=== PATIENT | female | born 1935 | race Caucasian/White ===

== ENCOUNTER 2018-11-11 17:00 | Emergency (ER) | payer MEDICARE, BC ==
[~2018-11-11] VITALS: Ht 154.9 cm; Wt 109.1 kg
[~2018-11-11 17:00] MED LIST: ALBU6.7H INH; ASPI-611 PO; BUDE10.2 INH; CALC600T18; CELE-193 PO; DOXY-200 PO; ESOM40CA PO; FEBU40TA PO; FISH1CAP15 PO; FURO-150 PO; GLYB2.5T4 PO; HYDR-3686 PO; IPRA3AMP31 IH; NEBI2.5T3 PO; NORCO10T PO; POTA20TA84 PO; ROPI2TAB29 PO; ROSU40TA PO; SITA100T15 PO; VIT1CAPS48 PO; ZET10T PO
--- NOTE | 2018-11-11 19:13 | NUR ---
pt moved from [facility] to bed 18. able to ambulate with cane, spoke with provider about pt's wait time
[2018-11-11] MEDS ORDERED: ipratropium/albuterol 3ml nebule NEB ONE (19:25)
[2018-11-11] MEDS ORDERED: azithromycin 250mg tablet PO ONE (19:25)
[2018-11-11] MEDS ORDERED: predniSONE 20 mg tablet PO ONE (19:25)
[2018-11-11] MEDS ORDERED: ALBU8HFA PO (19:33)
[2018-11-11] MEDS ORDERED: AZIT250T2 PO (19:33)
[2018-11-11] MEDS ORDERED: PRED20TA PO (19:33)
--- NOTE | 2018-11-11 19:37 | NUR ---
RT in room for treatment
[2018-11-11 19:38] VITALS: BP 146/78
== END 2018-11-11 19:56 | disposition home or self-care (01) ==
LOC: ER 17:00
DX: J44.1 Chronic obstructive pulmonary disease with (acute) exacerbation (principal); J20.9 Acute bronchitis, unspecified; I48.91 Unspecified atrial fibrillation; I25.119 Atherosclerotic heart disease of native coronary artery with unspecified angina pectoris; I25.2 Old myocardial infarction; E11.9 Type 2 diabetes mellitus without complications; G89.29 Other chronic pain; Z90.49 Acquired absence of other specified parts of digestive tract; Z88.0 Allergy status to penicillin; Z88.8 Allergy status to other drugs, medicaments and biological substances; Z79.82 Long term (current) use of aspirin; Z79.899 Other long term (current) drug therapy
CPT/HCPCS: 71045; 93005; 94640; 94760; 99283; J7512

== ENCOUNTER 2018-12-11 11:05 | Inpatient (IN) | payer MEDICARE, BC ==
[~2018-12-11] VITALS: Ht 154.9 cm; Wt 106.4 kg
[~2018-12-11 11:05] MED LIST changes: +ALBU8HFA PO; +AZIT250T2 PO; -CALC600T18; +CALC600T18 PO; +PRED20TA PO
[2018-12-11] MEDS ORDERED: pantoprazole 40 MG vial IV ONE (12:05)
[2018-12-11] MEDS ORDERED: famotidine/PF 10 mg/ml inj IV ONE (12:05)
[2018-12-11] MEDS ORDERED: normal saline 1000ML IV soln IV ONE (12:05)
[2018-12-11 12:11] LABS: BASOPHILS # (AUTO) 0.1 X10'3 (0-0.2); BASOPHILS % (AUTO) 0.7 % (0-1); EOSINOPHILS # (AUTO) 0.2 X10'3 (0-0.9); EOSINOPHILS % (AUTO) 1.6 % (0-6); HEMATOCRIT 35.7 % (35.0-45.0); HEMOGLOBIN 11.7 g/dl (12.0-16.0); LYMPHOCYTES % (AUTO) 13.1 % (21-51); MEAN CORPUSCULAR HEMOGLOBIN 32.4 PG (27.0-31.0); MEAN CORPUSCULAR HGB CONC 32.8 g/dL (33.0-36.5); MEAN CORPUSCULAR VOLUME 98.8 FL (78-98); MEAN PLATELET VOLUME 8.7 FL (7.4-10.4); MONOCYTES # (AUTO) 1.5 X10'3 (0-0.9); MONOCYTES % (AUTO) 9.9 % (2-12); NEUTROPHILS # (AUTO) 11.2 X10'3 (1.8-7.7); NEUTROPHILS % (AUTO) 74.7 % (42-75); PLATELET COUNT 296 X10'3 (140-440); RED BLOOD COUNT 3.62 X10'6 (4.20-5.60); RED CELL DISTRIBUTION WIDTH 15.2 % (11.5-14.5); WHITE BLOOD COUNT 15.1 X10'3 (4.5-11.0)
[2018-12-11 12:22] LABS: INR 1.1 INR; PARTIAL THROMBOPLASTIN TIME 23 SECONDS (22-32); PROTHROMBIN TIME 10.7 SECONDS (9.0-12.0)
[2018-12-11 12:24] LABS: ALANINE AMINOTRANSFERASE 21 U/L (12-78); ALBUMIN 2.6 G/DL (3.4-5.0); ALBUMIN/GLOBULIN RATIO 0.7 (1.1-1.5); ALKALINE PHOSPHATASE 65 IU/L (46-116); ANION GAP 12 (8-16); ASPARTATE AMINO TRANSFERASE 17 U/L (10-37); BILIRUBIN,TOTAL 0.2 MG/DL (0.1-1.0); BLOOD UREA NITROGEN 64 MG/DL (7-18); BUN/CREATININE RATIO 48.1 (6.6-38.0); CALCIUM 8.9 MG/DL (8.5-10.1); CHLORIDE 110 MMOL/L (99-107); CREATININE 1.33 MG/DL (0.40-0.90); GLUCOSE 162 MG/DL (70-104); POTASSIUM 4.3 MMOL/L (3.5-5.1); SODIUM 143 MMOL/L (135-145); TOTAL PROTEIN 6.3 G/DL (6.4-8.2); eGFR 38 ML/MIN
[2018-12-11 13:35] LABS: PLATELET ESTIMATE NORMAL; TOTAL CELLS COUNTED 100
[2018-12-11] MEDS ORDERED: magnesium 2GM in 50ml NS 50 ML IV PRN (14:10)
[2018-12-11] MEDS ORDERED: magnesium 4gm in 100ml NS 100 ML IV PRN (14:10)
[2018-12-11] MEDS ORDERED: potassium Cl 40MEQ/NS 500ml 500 ML IV PRN ×2 (14:10)
[2018-12-11] MEDS ORDERED: acetaminophen 325mg tablet PO PRN (14:10)
[2018-12-11] MEDS ORDERED: dextrose 50%-water 50ml dispensing syringe IV PRN ×2 (14:10)
[2018-12-11] MEDS ORDERED: glucagon, human recombinant 1mg kit SUBCUT PRN (14:10)
[2018-12-11] MEDS ORDERED: potassium Cl 20 mEq SR tablet PO PRN (14:10)
[2018-12-11] MEDS ORDERED: dextrose ORAL solution 15 GM/59 ML bottle PO PRN ×2 (14:10)
[2018-12-11] MEDS ORDERED: insulin Lispro (HumaLOG) vial - multi-dose SQ SCH (14:10)
[2018-12-11] MEDS ORDERED: ondansetron/PF 4mg/2ml inj IV PRN (14:10)
[2018-12-11] MEDS ORDERED: mag hydrox/Alum hydrox/simeth 30ml oral suspension PO PRN (14:10)
[2018-12-11] MEDS ORDERED: MESSAGE TO PHARMACY PO ONE (14:10)
[2018-12-11] MEDS ORDERED: morphine 4 MG/ML inj SYRINge IV PRN (14:10)
[2018-12-11] MEDS ORDERED: ipratropium/albuterol 3ml nebule NEB PRN (14:10)
[2018-12-11] MEDS ORDERED: ipratropium/albuterol 3ml nebule ONE (14:27)
[2018-12-11] MEDS: normal saline 1000ml 1,000 ML IV SCH (14:44)
[2018-12-11 15:08] LABS: HEMOGLOBIN A1C 7.2 % (4.5-6.2)
[2018-12-11] MEDS ORDERED: ALBU8HFA PO (15:29)
[2018-12-11] MEDS ORDERED: ROPI1TAB4 PO (16:08)
[2018-12-11] MEDS ORDERED: BIOT800T PO (16:13)
[2018-12-11] MEDS ORDERED: CYAN-19 PO (16:13)
[2018-12-11] MEDS ORDERED: TURM538C PO (16:14)
[2018-12-11] MEDS ORDERED: CHOL10002 PO (16:15)
[2018-12-11] MEDS ORDERED: NITR0.4T48 SL (16:18)
[2018-12-11] MEDS ORDERED: FLUT16SP2 BOTHNARES (16:20)
--- NOTE | 2018-12-11 16:30 | NUR ---
PATIENT TO ROOM 346 A. PATIENT ALERT AND ORIENTED AND IN NO APPARENT DISTRESS ON 2L. WILL CONTINUE TO MONITOR PATIENT.
[2018-12-11 16:31] VITALS: BP 111/59
[2018-12-11] MEDS ORDERED: non-formulary drug (Fluticasone Propionate (Flonase) 2 SPRAYS) BOTHNARES PRN (16:50)
[2018-12-11] MEDS: pantoprazole 40MG/NS 100ML BAG 100 ML IV SCH ×2 (17:36→22:26)
--- NOTE | 2018-12-11 18:30 | NUR ---
Problems reprioritized. Patient report given, questions answered & plan of care reviewed with NAGI Navarro. Patient comfortable at this time. 2RN skin check done at this time. Call light and items of frequent use in reach of patient.
--- NOTE | 2018-12-11 18:32 | NUR ---
Received report from NAGI Snider. Patient is awake and alert on 2L NC. In no apparent distress. Call light and items of frequent use within reach. Will continue to monitor.
[2018-12-11] MEDS ORDERED: PEG 3350/Na sulf,bicarb,Cl/KCl oral sol 4 liter bottle PO ONE (18:40)
[2018-12-11] MEDS: albuterol 2.5 MG/3 ML nebule NEB SCH (19:00)
[2018-12-11] MEDS: diatr meglu/diatrizoate 30ml oral sol.-(3 dose) bottle PO SCH (19:15)
[2018-12-11 20:00] VITALS: BP 141/63
[2018-12-11] MEDS ORDERED: non-formulary drug (Budesonide/Formoterol Fumarate (Symbicort 160-4.5 Mcg Inhaler) 2 PUFFS INH SCH (20:00)
[2018-12-11] MEDS: ROPINIRole 1mg tablet PO SCH (20:53)
[2018-12-11] MEDS: ROSUVASTATIN 40MG TABLET PO SCH (20:57)
[2018-12-11] MEDS ORDERED: NEBIVOLOL HCL PO SCH (21:00)
[2018-12-11] MEDS ORDERED: non-formulary drug (Rosuvastatin Calcium* (Crestor*) 1 TAB) PO SCH (21:00)
[2018-12-11] MEDS: budesonide 0.5mg/2ml UD nebule IH SCH (21:00)
[2018-12-11] MEDS ORDERED: diatr meglu/diatrizoate 30ml oral sol.-(3 dose) bottle PO ONE (21:00)
[2018-12-11] MEDS: insulin glargine (Lantus) pen - multi-dose SQ SCH (21:00)
[2018-12-11] MEDS: levoFLOXACIN-Levaquin 500mg/D5 100 ML IV SCH (22:26)
[2018-12-12] VITALS (14 sets, daily range): BP systolic 81–132; BP diastolic 36–64
[2018-12-12] MEDS: metroNIDAZOLE-Flagyl 500mg/NS 100 ML IV SCH ×3 (01:16→16:09)
[2018-12-12] MEDS: normal saline 1000ml 1,000 ML IV SCH (01:16)
[2018-12-12] MEDS: pantoprazole 40MG/NS 100ML BAG 100 ML IV SCH ×2 (04:51→09:14)
[2018-12-12 05:37] LABS: BASOPHILS # (AUTO) 0.1 X10'3 (0-0.2); BASOPHILS % (AUTO) 0.4 % (0-1); EOSINOPHILS # (AUTO) 0.1 X10'3 (0-0.9); EOSINOPHILS % (AUTO) 0.4 % (0-6); HEMATOCRIT 26.2 % (35.0-45.0); HEMOGLOBIN 8.8 g/dl (12.0-16.0); LYMPHOCYTES # (AUTO) 2.1 X10'3 (1.1-4.8); LYMPHOCYTES % (AUTO) 14.4 % (21-51); MEAN CORPUSCULAR HEMOGLOBIN 33.4 PG (27.0-31.0); MEAN CORPUSCULAR HGB CONC 33.5 g/dL (33.0-36.5); MEAN CORPUSCULAR VOLUME 99.6 FL (78-98); MONOCYTES # (AUTO) 1.5 X10'3 (0-0.9); NEUTROPHILS # (AUTO) 11.1 X10'3 (1.8-7.7); NEUTROPHILS % (AUTO) 74.8 % (42-75); PLATELET COUNT 221 X10'3 (140-440); RED BLOOD COUNT 2.63 X10'6 (4.20-5.60); WHITE BLOOD COUNT 14.8 X10'3 (4.5-11.0)
[2018-12-12 05:40] LABS: ALANINE AMINOTRANSFERASE 18 U/L (12-78); ALBUMIN 2.3 G/DL (3.4-5.0); ALBUMIN/GLOBULIN RATIO 0.7 (1.1-1.5); ALKALINE PHOSPHATASE 52 IU/L (46-116); ANION GAP 12 (8-16); ASPARTATE AMINO TRANSFERASE 12 U/L (10-37); BILIRUBIN,TOTAL 0.2 MG/DL (0.1-1.0); BLOOD UREA NITROGEN 67 MG/DL (7-18); BUN/CREATININE RATIO 54.5 (6.6-38.0); CALCIUM 7.8 MG/DL (8.5-10.1); CHLORIDE 114 MMOL/L (99-107); CHOL/HDL RATIO 4.5 (0.00-4.99); CHOLESTEROL 116 MG/DL (0-200); CREATININE 1.23 MG/DL (0.40-0.90); GLUCOSE 181 MG/DL (70-104); HDL CHOLESTEROL 26 MG/DL (35-60); LDL CHOLESTEROL 53 MG/DL (50-100); MAGNESIUM 1.7 MG/DL (1.5-2.4); SODIUM 147 MMOL/L (135-145); TOTAL CARBON DIOXIDE 20.8 MMOL/L (24-32); TOTAL PROTEIN 5.4 G/DL (6.4-8.2); TRIGLYCERIDES 277 MG/DL (20-135); eGFR 42 ML/MIN
--- NOTE | 2018-12-12 06:09 | NUR ---
Problems reprioritized. Patient report given, questions answered & plan of care reviewed with NAGI Callejas.
[2018-12-12] MEDS: albuterol 2.5 MG/3 ML nebule NEB SCH ×4 (07:27→19:57)
[2018-12-12] MEDS: budesonide 0.5mg/2ml UD nebule IH SCH ×2 (07:27→19:57)
[2018-12-12] MEDS: cyanocobalamin 500mcg tablet PO SCH ×2 (08:00→08:52)
[2018-12-12] MEDS ORDERED: fluticasone nasal spray 16GM bottle NS PRN (08:00)
[2018-12-12] MEDS ORDERED: CYANOCOBALAMIN PO SCH (08:00)
[2018-12-12] MEDS ORDERED: non-formulary drug (Calcium Carbonate (Calcium) 1 TAB) PO SCH (08:00)
[2018-12-12] MEDS: K and/or MAG REPLACEMENT MC SCH (08:00)
[2018-12-12] MEDS: levoFLOXACIN-Levaquin 500mg/D5 100 ML IV SCH (08:00)
[2018-12-12] MEDS ORDERED: non-formulary drug (Fish Oil/Dha/Epa (Fish Oil 1,200 Mg Fish Oil) 1 EACH) PO SCH (08:00)
[2018-12-12] MEDS ORDERED: non-formulary drug (Cholecalciferol (Vitamin D3) (Vitamin D3) 1 TAB) PO SCH (08:00)
[2018-12-12] MEDS ORDERED: non-formulary drug (Vit A & D3 In Cod Liver Oil (Cod Liver Oil Softgel) 1 EACH) PO SCH (08:00)
[2018-12-12] MEDS: vitamin D (cholecalciferol) 1,000 unit tablet PO SCH ×2 (08:00→08:52)
[2018-12-12] MEDS: ULORIC 40 MG PO SCH (08:00)
[2018-12-12] MEDS: calcium carbonate 500mg tablet PO SCH ×2 (08:00→08:51)
[2018-12-12] MEDS: dextrose 5%-water 1,000 ML IV SCH ×2 (08:46→17:45)
[2018-12-12] MEDS: nystatin 15 GM powder TP SCH ×3 (08:52→21:21)
--- NOTE | 2018-12-12 09:06 | NUR ---
Spoke with ton clarify orders on Golytlly and gastrograffin. Although pt. has not had full dose r/t not tolerating well there are no new dosing orders for these medications. Pt. has 2 ATB IV anmd protonix, incompatible medications, attempted IV p[lacement x 2 with no sucess, Jazmine ross for placement of IV, states PICC or midline would be good for pt. to have. states protonix has priority over ATB. Will hold ATB and give protonix IV per order at this time.
--- NOTE | 2018-12-12 10:45 | NUR ---
Pt. leaving floor to go to CT, has 02 on her chair, pt. to go to GI lab for upper and lower endoscopy immediately after CT scan.
--- NOTE | 2018-12-12 12:38 | NUR ---
Called GI to relay that pt. BG has not been taken for lunch.
[2018-12-12] MEDS ORDERED: MIDAZolam 5mg/5ml vial ONE (12:53)
[2018-12-12] MEDS ORDERED: fentaNYL/PF 50MCG/1 ML 2ML syringe ONE (12:53)
[2018-12-12] MEDS ORDERED: LIDOcaine Viscous 15ml cup ONE (12:53)
--- NOTE | 2018-12-12 15:47 | NUR ---
Extended PIV inserted to left upper arm brachial vein x 2 attempts using ultrasound. Rebecca well. Left AC PIV left leaking. IV redressed, y-site replaced tightened, but continued to leak. PIV dc'd with cath intact. Several (total 6 with ok from patient) attempts x 3 nurses to each arm to insert PIV but unable to do so. Dr Ortiz notified and stated to hold antibiotics for now until after Dr Pineda' GI consult. Addendum: 12/12/18 at 1552 by Jazmine Low RN Amended: Links added.
[2018-12-12 15:56] LABS: HEMATOCRIT 22.6 % (35.0-45.0); HEMOGLOBIN 7.5 g/dl (12.0-16.0); MEAN CORPUSCULAR HEMOGLOBIN 32.7 PG (27.0-31.0); MEAN CORPUSCULAR VOLUME 99.1 FL (78-98); MEAN PLATELET VOLUME 8.8 FL (7.4-10.4); PLATELET COUNT 211 X10'3 (140-440); RED BLOOD COUNT 2.28 X10'6 (4.20-5.60); RED CELL DISTRIBUTION WIDTH 15.3 % (11.5-14.5); WHITE BLOOD COUNT 15.5 X10'3 (4.5-11.0)
--- NOTE | 2018-12-12 18:19 | NUR ---
Received report from NAGI Callejas. Patient is awake and alert on 2L NC, in no apparent distress. Call light and items of frequent use within reach. Will continue to monitor.
--- NOTE | 2018-12-12 18:39 | NUR ---
Pt. has signed blood transfusion consent as well as MD, pt. is aware of transfusion and has educational materials, reviewed s/sx of ASE of transfusion. Reported that blood is ready in lab, tubing ready for transfusion, vitaols machine in room and hooked up to pt., pt. is alert and appropriate sitting comfortably in bed. VSS at this time. Report given to Melanie LAZAR.
[2018-12-12] MEDS: pantoprazole 40 MG vial IV SCH (19:32)
[2018-12-12] MEDS: lactobacillus rhamnosus 10,000 MMU CELLS/CAPSULE PO SCH (19:33)
[2018-12-12] MEDS: insulin glargine (Lantus) pen - multi-dose SQ SCH (21:00)
[2018-12-12] MEDS: ROSUVASTATIN 40MG TABLET PO SCH (21:00)
[2018-12-12] MEDS: ROPINIRole 1mg tablet PO SCH (21:19)
[2018-12-13] VITALS (12 sets, daily range): BP systolic 101–124; BP diastolic 43–81
[2018-12-13 00:15] LABS: HEMATOCRIT 23.6 % (35.0-45.0); HEMOGLOBIN 7.7 g/dl (12.0-16.0); MEAN CORPUSCULAR HGB CONC 32.6 g/dL (33.0-36.5); MEAN CORPUSCULAR VOLUME 98.2 FL (78-98); MEAN PLATELET VOLUME 8.8 FL (7.4-10.4); PLATELET COUNT 182 X10'3 (140-440); RED CELL DISTRIBUTION WIDTH 15.6 % (11.5-14.5); WHITE BLOOD COUNT 13.8 X10'3 (4.5-11.0)
[2018-12-13] MEDS: metroNIDAZOLE-Flagyl 500mg/NS 100 ML IV SCH ×4 (00:41→23:37)
[2018-12-13] MEDS: morphine 4 MG/ML inj SYRINge IV PRN ×2 (02:32→13:37)
[2018-12-13] MEDS: dextrose 5%-water 1,000 ML IV SCH ×3 (04:47→23:37)
[2018-12-13 05:05] LABS: BASOPHILS # (AUTO) 0.1 X10'3 (0-0.2); BASOPHILS % (AUTO) 0.5 % (0-1); EOSINOPHILS # (AUTO) 0.2 X10'3 (0-0.9); EOSINOPHILS % (AUTO) 1.3 % (0-6); HEMOGLOBIN 7.1 g/dl (12.0-16.0); LYMPHOCYTES # (AUTO) 2.3 X10'3 (1.1-4.8); LYMPHOCYTES % (AUTO) 17.9 % (21-51); MEAN CORPUSCULAR HEMOGLOBIN 32.6 PG (27.0-31.0); MEAN CORPUSCULAR HGB CONC 33.7 g/dL (33.0-36.5); MEAN CORPUSCULAR VOLUME 96.9 FL (78-98); MEAN PLATELET VOLUME 9.2 FL (7.4-10.4); NEUTROPHILS # (AUTO) 9.1 X10'3 (1.8-7.7); NEUTROPHILS % (AUTO) 72.3 % (42-75); PLATELET COUNT 170 X10'3 (140-440); RED BLOOD COUNT 2.16 X10'6 (4.20-5.60); RED CELL DISTRIBUTION WIDTH 16.1 % (11.5-14.5); WHITE BLOOD COUNT 12.6 X10'3 (4.5-11.0)
[2018-12-13 05:23] LABS: ALANINE AMINOTRANSFERASE 11 U/L (12-78); ALBUMIN 2.1 G/DL (3.4-5.0); ALBUMIN/GLOBULIN RATIO 0.8 (1.1-1.5); ALKALINE PHOSPHATASE 48 IU/L (46-116); ANION GAP 10 (8-16); ASPARTATE AMINO TRANSFERASE 11 U/L (10-37); BILIRUBIN,TOTAL 0.2 MG/DL (0.1-1.0); BLOOD UREA NITROGEN 33 MG/DL (7-18); BUN/CREATININE RATIO 30.3 (6.6-38.0); CALCIUM 7.3 MG/DL (8.5-10.1); CHLORIDE 114 MMOL/L (99-107); CREATININE 1.09 MG/DL (0.40-0.90); GLUCOSE 175 MG/DL (70-104); MAGNESIUM 1.8 MG/DL (1.5-2.4); POTASSIUM 3.3 MMOL/L (3.5-5.1); SODIUM 146 MMOL/L (135-145); TOTAL CARBON DIOXIDE 22.2 MMOL/L (24-32); TOTAL PROTEIN 4.9 G/DL (6.4-8.2); eGFR 48 ML/MIN
--- NOTE | 2018-12-13 05:55 | NUR ---
Critical low Hematocrit 21 called at 0523. MD Al aware. Ordered 1 unit of PRBCs to be administered.
--- NOTE | 2018-12-13 06:15 | NUR ---
Patient in room [facility] 346. I have received report from Melanie LAZAR and had the opportunity to ask questions and assume patient care. Patient in bed resting bed low, locked, call light in reach
--- NOTE | 2018-12-13 06:15 | NUR ---
Problems reprioritized. Patient report given, questions answered & plan of care reviewed with NAGI Gudino.
[2018-12-13] MEDS: albuterol 2.5 MG/3 ML nebule NEB SCH ×4 (07:31→21:59)
[2018-12-13] MEDS: budesonide 0.5mg/2ml UD nebule IH SCH ×2 (07:31→21:59)
[2018-12-13] MEDS: K and/or MAG REPLACEMENT MC SCH (08:00)
[2018-12-13] MEDS: cyanocobalamin 500mcg tablet PO SCH (08:00)
[2018-12-13] MEDS ORDERED: levoFLOXACIN-Levaquin 250mg/D5 50 ML IV SCH (08:00)
[2018-12-13] MEDS: ULORIC 40 MG PO SCH (08:00)
[2018-12-13] MEDS: calcium carbonate 500mg tablet PO SCH (08:34)
[2018-12-13] MEDS: vitamin D (cholecalciferol) 1,000 unit tablet PO SCH ×2 (08:34→08:42)
[2018-12-13] MEDS: lactobacillus rhamnosus 10,000 MMU CELLS/CAPSULE PO SCH ×2 (08:34→20:14)
[2018-12-13] MEDS: potassium Cl 20 mEq SR tablet PO PRN ×3 (08:35→20:14)
[2018-12-13] MEDS: pantoprazole 40 MG vial IV SCH ×2 (08:36→20:14)
[2018-12-13] MEDS: nystatin 15 GM powder TP SCH ×3 (08:49→20:15)
[2018-12-13] MEDS ORDERED: diazepam 5mg tablet PO PRN (15:05)
--- NOTE | 2018-12-13 15:31 | NUR ---
DM consult, A1c 7.2, patient given written DM education handout with verbal review. Addendum: 12/13/18 at [address] Amended: Links added.
[2018-12-13 15:46] LABS: HEMATOCRIT 24.7 % (35.0-45.0); HEMOGLOBIN 8.1 g/dl (12.0-16.0); MEAN CORPUSCULAR HEMOGLOBIN 31.8 PG (27.0-31.0); MEAN CORPUSCULAR VOLUME 96.3 FL (78-98); PLATELET COUNT 164 X10'3 (140-440); RED BLOOD COUNT 2.56 X10'6 (4.20-5.60); RED CELL DISTRIBUTION WIDTH 15.8 % (11.5-14.5); WHITE BLOOD COUNT 13.1 X10'3 (4.5-11.0)
--- NOTE | 2018-12-13 18:25 | NUR ---
Problems reprioritized. Patient report given, Melanie LAZAR questions answered & plan of care reviewed with . Patient in bed. Bed locked, low call light in reach
--- NOTE | 2018-12-13 18:33 | NUR ---
Received report from NAGI Gudino. Patient is awake and alert on room air, in no apparent distress. Call light and items of frequent use within reach. Will continue to monitor.
[2018-12-13] MEDS: ROPINIRole 1mg tablet PO SCH (20:14)
[2018-12-13] MEDS: insulin glargine (Lantus) pen - multi-dose SQ SCH (20:19)
[2018-12-13] MEDS: ROSUVASTATIN 40MG TABLET PO SCH (20:19)
[2018-12-14] VITALS (11 sets, daily range): BP systolic 99–125; BP diastolic 40–100
[2018-12-14 05:11] LABS: BASOPHILS # (AUTO) 0.1 X10'3 (0-0.2); BASOPHILS % (AUTO) 0.6 % (0-1); EOSINOPHILS # (AUTO) 0.4 X10'3 (0-0.9); EOSINOPHILS % (AUTO) 3.9 % (0-6); HEMATOCRIT 22.9 % (35.0-45.0); HEMOGLOBIN 7.7 g/dl (12.0-16.0); LYMPHOCYTES # (AUTO) 2.2 X10'3 (1.1-4.8); MEAN CORPUSCULAR HEMOGLOBIN 32.5 PG (27.0-31.0); MEAN CORPUSCULAR HGB CONC 33.9 g/dL (33.0-36.5); MEAN CORPUSCULAR VOLUME 95.9 FL (78-98); MEAN PLATELET VOLUME 8.8 FL (7.4-10.4); MONOCYTES # (AUTO) 0.8 X10'3 (0-0.9); MONOCYTES % (AUTO) 7.2 % (2-12); NEUTROPHILS # (AUTO) 7.1 X10'3 (1.8-7.7); NEUTROPHILS % (AUTO) 67.3 % (42-75); PLATELET COUNT 160 X10'3 (140-440); RED BLOOD COUNT 2.38 X10'6 (4.20-5.60); WHITE BLOOD COUNT 10.6 X10'3 (4.5-11.0)
[2018-12-14 05:21] LABS: ALANINE AMINOTRANSFERASE 16 U/L (12-78); ALBUMIN 2.1 G/DL (3.4-5.0); ALBUMIN/GLOBULIN RATIO 0.7 (1.1-1.5); ALKALINE PHOSPHATASE 50 IU/L (46-116); ANION GAP 7 (8-16); ASPARTATE AMINO TRANSFERASE 16 U/L (10-37); BILIRUBIN,TOTAL 0.2 MG/DL (0.1-1.0); CALCIUM 7.2 MG/DL (8.5-10.1); CHLORIDE 111 MMOL/L (99-107); CREATININE 0.99 MG/DL (0.40-0.90); GLUCOSE 154 MG/DL (70-104); MAGNESIUM 1.6 MG/DL (1.5-2.4); POTASSIUM 3.5 MMOL/L (3.5-5.1); SODIUM 140 MMOL/L (135-145); TOTAL CARBON DIOXIDE 21.7 MMOL/L (24-32); eGFR 54 ML/MIN
[2018-12-14 05:39] LABS: BLOOD UREA NITROGEN 13 MG/DL (7-18); BUN/CREATININE RATIO 13.1 (6.6-38.0)
--- NOTE | 2018-12-14 06:20 | NUR ---
Patient in room [facility] 346. I have received report from Melanie LAZAR and had the opportunity to ask questions and assume patient care.Patient in bed resting, bed low, locked, call light in reach
--- NOTE | 2018-12-14 06:20 | NUR ---
Problems reprioritized. Patient report given, questions answered & plan of care reviewed with NAGI Gudino.
[2018-12-14] MEDS: albuterol 2.5 MG/3 ML nebule NEB SCH ×4 (07:32→20:00)
[2018-12-14] MEDS: budesonide 0.5mg/2ml UD nebule IH SCH ×2 (07:34→20:00)
[2018-12-14] MEDS: calcium carbonate 500mg tablet PO SCH (07:47)
[2018-12-14] MEDS: lactobacillus rhamnosus 10,000 MMU CELLS/CAPSULE PO SCH ×2 (07:47→21:06)
[2018-12-14] MEDS: vitamin D (cholecalciferol) 1,000 unit tablet PO SCH (07:48)
[2018-12-14] MEDS: cyanocobalamin 500mcg tablet PO SCH (07:48)
[2018-12-14] MEDS: pantoprazole 40 MG vial IV SCH ×2 (07:50→21:06)
[2018-12-14] MEDS: metroNIDAZOLE-Flagyl 500mg/NS 100 ML IV SCH ×3 (07:51→23:48)
[2018-12-14] MEDS: ULORIC 40 MG PO SCH (08:00)
[2018-12-14] MEDS: K and/or MAG REPLACEMENT MC SCH (08:00)
[2018-12-14] MEDS: nystatin 15 GM powder TP SCH ×3 (08:07→21:08)
--- NOTE | 2018-12-14 08:27 | NUR ---
Pola from Tele call patient is having PVC's with 4,5,6 runs. I paged MD. Patient non symptomatic. I will continue to monitor
--- NOTE | 2018-12-14 09:13 | NUR ---
Dr. Ortiz called back and he is monitoring patient. he has stopped her Levaquin
[2018-12-14] MEDS: dextrose 5%-water 1,000 ML IV SCH ×2 (09:45→19:45)
[2018-12-14] MEDS ORDERED: metoprolol tartrate 12.5mg (1/2 tablet) PO SCH (10:10)
--- NOTE | 2018-12-14 12:17 | NUR ---
Pola from [facility] had a [address] Addendum: 12/14/18 at 1221 by Terese Garibay RN Order to keep k replace to 4.0 and Mag 2.0
--- NOTE | 2018-12-14 13:57 | NUR ---
I called tele and gave report to Juanis LAZAR patient is getting transferred to 4759A
--- NOTE | 2018-12-14 14:10 | NUR ---
Patient transferred to [facility]. Patient stable at discharge. All belongings sent.
[2018-12-14] MEDS ORDERED: potassium Cl 20 mEq SR tablet PO PRN ×3 (14:25→15:35)
[2018-12-14] MEDS ORDERED: potassium Cl 40MEQ/NS 500ml 500 ML IV PRN ×2 (14:25)
[2018-12-14] MEDS ORDERED: magnesium 2GM in 50ml NS 50 ML IV PRN (14:25)
[2018-12-14] MEDS ORDERED: magnesium 4gm in 100ml NS 100 ML IV PRN (14:25)
[2018-12-14] MEDS ORDERED: magnesium Cl slow-release 64mg tablet PO PRN (14:25)
[2018-12-14] MEDS ORDERED: metoprolol tartrate 12.5mg (1/2 tablet) PO ONE (15:45)
[2018-12-14] MEDS: morphine 4 MG/ML inj SYRINge IV PRN (16:41)
[2018-12-14] MEDS: potassium Cl 20 mEq SR tablet PO PRN ×2 (17:31→21:06)
[2018-12-14] MEDS: ROSUVASTATIN 40MG TABLET PO SCH (21:00)
[2018-12-14] MEDS: insulin glargine (Lantus) pen - multi-dose SQ SCH (21:00)
[2018-12-14] MEDS: ROPINIRole 1mg tablet PO SCH (21:06)
[2018-12-14] MEDS: metoprolol tartrate 25mg tablet PO SCH (21:06)
[2018-12-14 22:23] LABS: ALBUMIN 2.3 G/DL (3.4-5.0); ANION GAP 9 (8-16); BLOOD UREA NITROGEN 7 MG/DL (7-18); BUN/CREATININE RATIO 7.9 (6.6-38.0); CALCIUM 7.5 MG/DL (8.5-10.1); CHLORIDE 111 MMOL/L (99-107); CREATININE 0.89 MG/DL (0.40-0.90); GLUCOSE 155 MG/DL (70-104); MAGNESIUM 1.7 MG/DL (1.5-2.4); POTASSIUM 3.4 MMOL/L (3.5-5.1); SODIUM 142 MMOL/L (135-145); TOTAL CARBON DIOXIDE 22.5 MMOL/L (24-32); eGFR 61 ML/MIN
[2018-12-15 03:00] VITALS: BP 111/43
[2018-12-15] MEDS: dextrose 5%-water 1,000 ML IV SCH ×2 (05:45→12:26)
[2018-12-15 06:29] LABS: BASOPHILS # (AUTO) 0.1 X10'3 (0-0.2); BASOPHILS % (AUTO) 0.7 % (0-1); EOSINOPHILS # (AUTO) 0.5 X10'3 (0-0.9); EOSINOPHILS % (AUTO) 5.2 % (0-6); HEMATOCRIT 25.2 % (35.0-45.0); HEMOGLOBIN 8.8 g/dl (12.0-16.0); LYMPHOCYTES # (AUTO) 1.8 X10'3 (1.1-4.8); LYMPHOCYTES % (AUTO) 17.7 % (21-51); MEAN CORPUSCULAR HEMOGLOBIN 33.4 PG (27.0-31.0); MEAN CORPUSCULAR VOLUME 95.4 FL (78-98); MEAN PLATELET VOLUME 9.2 FL (7.4-10.4); MONOCYTES # (AUTO) 0.9 X10'3 (0-0.9); MONOCYTES % (AUTO) 8.5 % (2-12); NEUTROPHILS # (AUTO) 7.1 X10'3 (1.8-7.7); NEUTROPHILS % (AUTO) 67.9 % (42-75); PLATELET COUNT 178 X10'3 (140-440); RED BLOOD COUNT 2.65 X10'6 (4.20-5.60); RED CELL DISTRIBUTION WIDTH 15.9 % (11.5-14.5); WHITE BLOOD COUNT 10.4 X10'3 (4.5-11.0)
[2018-12-15 06:54] LABS: ALANINE AMINOTRANSFERASE 18 U/L (12-78); ALBUMIN 2.2 G/DL (3.4-5.0); ALBUMIN/GLOBULIN RATIO 0.7 (1.1-1.5); ALKALINE PHOSPHATASE 52 IU/L (46-116); ANION GAP 9 (8-16); ASPARTATE AMINO TRANSFERASE 22 U/L (10-37); BILIRUBIN,TOTAL 0.2 MG/DL (0.1-1.0); BLOOD UREA NITROGEN 5 MG/DL (7-18); CALCIUM 7.3 MG/DL (8.5-10.1); CHLORIDE 114 MMOL/L (99-107); CREATININE 0.84 MG/DL (0.40-0.90); GLUCOSE 126 MG/DL (70-104); POTASSIUM 4.2 MMOL/L (3.5-5.1); SODIUM 143 MMOL/L (135-145); TOTAL CARBON DIOXIDE 20.5 MMOL/L (24-32); TOTAL PROTEIN 5.2 G/DL (6.4-8.2); eGFR 65 ML/MIN
[2018-12-15 07:00] VITALS: BP 118/38
[2018-12-15] MEDS: budesonide 0.5mg/2ml UD nebule IH SCH ×2 (07:48→19:25)
[2018-12-15] MEDS: albuterol 2.5 MG/3 ML nebule NEB SCH ×4 (07:48→19:25)
[2018-12-15] MEDS ORDERED: CefTRIAXone/D5W-Rocephin 1gm 50 ML IV SCH (08:00)
[2018-12-15] MEDS: ULORIC 40 MG PO SCH (08:00)
[2018-12-15] MEDS: K and/or MAG REPLACEMENT MC SCH (08:00)
[2018-12-15] MEDS: cyanocobalamin 500mcg tablet PO SCH (08:52)
[2018-12-15] MEDS: vitamin D (cholecalciferol) 1,000 unit tablet PO SCH (08:52)
[2018-12-15] MEDS: pantoprazole 40 MG vial IV SCH ×2 (08:52→20:42)
[2018-12-15] MEDS: metoprolol tartrate 25mg tablet PO SCH ×2 (08:52→20:45)
[2018-12-15] MEDS: lactobacillus rhamnosus 10,000 MMU CELLS/CAPSULE PO SCH ×2 (08:52→20:42)
[2018-12-15] MEDS: calcium carbonate 500mg tablet PO SCH (08:52)
[2018-12-15] MEDS: morphine 4 MG/ML inj SYRINge IV PRN ×3 (09:18→20:45)
[2018-12-15] MEDS: nystatin 15 GM powder TP SCH ×3 (09:39→20:42)
[2018-12-15] MEDS: metroNIDAZOLE-Flagyl 500mg/NS 100 ML IV SCH ×2 (09:39→16:33)
[2018-12-15] MEDS: [UNRECOGNIZED DRUG - REMARK] IV NR (10:00)
[2018-12-15 11:00] VITALS: BP 113/38
[2018-12-15 15:00] VITALS: BP 127/50
--- NOTE | 2018-12-15 18:31 | NUR ---
Problems reprioritized. Patient report given, questions answered & plan of care reviewed with Aleta Kay RN, Maggie LAZAR..
[2018-12-15 19:00] VITALS: BP 117/57
[2018-12-15] MEDS: ROPINIRole 1mg tablet PO SCH (20:42)
[2018-12-15] MEDS: ketoconazole 2% cream 15gm TP SCH (20:46)
[2018-12-15] MEDS: ROSUVASTATIN 40MG TABLET PO SCH (20:46)
[2018-12-15] MEDS: insulin glargine (Lantus) pen - multi-dose SQ SCH (21:00)
[2018-12-15 23:00] VITALS: BP 114/58
[2018-12-16] MEDS: dextrose 5%-water 1,000 ML IV SCH (01:23)
[2018-12-16 03:00] VITALS: BP 113/47
[2018-12-16 05:55] LABS: BASOPHILS # (AUTO) 0.1 X10'3 (0-0.2); BASOPHILS % (AUTO) 0.7 % (0-1); EOSINOPHILS # (AUTO) 0.8 X10'3 (0-0.9); EOSINOPHILS % (AUTO) 6.6 % (0-6); HEMATOCRIT 26.4 % (35.0-45.0); HEMOGLOBIN 8.9 g/dl (12.0-16.0); LYMPHOCYTES # (AUTO) 1.9 X10'3 (1.1-4.8); LYMPHOCYTES % (AUTO) 15.9 % (21-51); MEAN CORPUSCULAR HEMOGLOBIN 32.4 PG (27.0-31.0); MEAN CORPUSCULAR HGB CONC 33.6 g/dL (33.0-36.5); MEAN CORPUSCULAR VOLUME 96.5 FL (78-98); MONOCYTES # (AUTO) 1.2 X10'3 (0-0.9); MONOCYTES % (AUTO) 9.8 % (2-12); NEUTROPHILS # (AUTO) 7.9 X10'3 (1.8-7.7); PLATELET COUNT 194 X10'3 (140-440); RED BLOOD COUNT 2.74 X10'6 (4.20-5.60); WHITE BLOOD COUNT 11.8 X10'3 (4.5-11.0)
--- NOTE | 2018-12-16 06:06 | NUR ---
Problems reprioritized. Patient report given, questions answered & plan of care reviewed with NAGI Elias.
[2018-12-16 07:00] VITALS: BP 115/79
[2018-12-16] MEDS: pantoprazole 40 MG vial IV SCH ×2 (07:29→21:21)
[2018-12-16] MEDS: nystatin 15 GM powder TP SCH ×3 (07:29→21:25)
[2018-12-16] MEDS: metoprolol tartrate 25mg tablet PO SCH ×2 (07:30→21:23)
[2018-12-16] MEDS: vitamin D (cholecalciferol) 1,000 unit tablet PO SCH (07:30)
[2018-12-16] MEDS: lactobacillus rhamnosus 10,000 MMU CELLS/CAPSULE PO SCH ×2 (07:30→21:22)
[2018-12-16] MEDS: cyanocobalamin 500mcg tablet PO SCH (07:30)
[2018-12-16] MEDS: calcium carbonate 500mg tablet PO SCH (07:30)
[2018-12-16] MEDS: ketoconazole 2% cream 15gm TP SCH ×2 (07:30→21:23)
[2018-12-16 07:44] LABS: ALANINE AMINOTRANSFERASE 18 U/L (12-78); ALBUMIN 2.2 G/DL (3.4-5.0); ALBUMIN/GLOBULIN RATIO 0.7 (1.1-1.5); ANION GAP 10 (8-16); ASPARTATE AMINO TRANSFERASE 19 U/L (10-37); BILIRUBIN,TOTAL 0.2 MG/DL (0.1-1.0); BLOOD UREA NITROGEN 7 MG/DL (7-18); BUN/CREATININE RATIO 7.4 (6.6-38.0); CALCIUM 7.4 MG/DL (8.5-10.1); CHLORIDE 111 MMOL/L (99-107); CREATININE 0.95 MG/DL (0.40-0.90); GLUCOSE 163 MG/DL (70-104); POTASSIUM 3.9 MMOL/L (3.5-5.1); SODIUM 141 MMOL/L (135-145); TOTAL CARBON DIOXIDE 20.4 MMOL/L (24-32); TOTAL PROTEIN 5.3 G/DL (6.4-8.2); eGFR 56 ML/MIN
[2018-12-16 07:47] LABS: ALKALINE PHOSPHATASE 55 IU/L (46-116)
[2018-12-16] MEDS: albuterol 2.5 MG/3 ML nebule NEB SCH ×4 (07:53→19:56)
[2018-12-16] MEDS: budesonide 0.5mg/2ml UD nebule IH SCH ×2 (07:53→19:56)
[2018-12-16] MEDS: K and/or MAG REPLACEMENT MC SCH (08:00)
[2018-12-16] MEDS: [UNRECOGNIZED DRUG - REMARK] IV NR (10:00)
[2018-12-16] MEDS: morphine 4 MG/ML inj SYRINge IV PRN (10:58)
[2018-12-16 11:00] VITALS: BP 102/42
[2018-12-16] MEDS: potassium Cl 20 mEq SR tablet PO PRN (12:01)
--- NOTE | 2018-12-16 12:55 | NUR ---
Spoke with Dr angeles informed him of patients potassium. he stated okay to give one time does of 20k meq PO and wait until morning labs
--- NOTE | 2018-12-16 13:20 | NUR ---
Initial: Pt admit with GIB now s/p EGD and on Protonix. Pt currently on CHO controlled heart healthy low fiber/soft diet with documented PO intake 100% meeting nutrient needs. LBM 12/15. No edema or wounds. No nutrition diagnosis at this time. Will continue to follow. Recommendations: 1) Continue heart healthy CHO controlled low fiber/soft diet 2) Wt per rx Addendum: 12/16/18 at [address] Amended: Links added.
[2018-12-16 15:00] VITALS: BP 103/67
[2018-12-16 18:00] VITALS: BP 133/59
--- NOTE | 2018-12-16 18:00 | NUR ---
PAGER ID: [phone] MESSAGE: Room 3023A [facility]. physical therapy stated unsafe to DC home. patient refusing rehab. asher [phone]
--- NOTE | 2018-12-16 18:02 | NUR ---
Spoke with Dr Ortiz informed him of physical therapist report and patients wishes
--- NOTE | 2018-12-16 18:13 | NUR ---
Problems reprioritized. Patient report given, questions answered & plan of care reviewed with An LAZAR.
--- NOTE | 2018-12-16 18:30 | NUR ---
Patient in room PCU 3023. I have received report from Jada LAZAR and had the opportunity to ask questions and assume patient care.
[2018-12-16] MEDS: ROSUVASTATIN 40MG TABLET PO SCH (21:00)
[2018-12-16] MEDS: ROPINIRole 1mg tablet PO SCH (21:22)
[2018-12-16] MEDS: insulin glargine (Lantus) pen - multi-dose SQ SCH (21:30)
[2018-12-16 22:00] VITALS: BP 109/52
[2018-12-17] MEDS: potassium Cl 20 mEq SR tablet PO PRN (00:03)
[2018-12-17 02:00] VITALS: BP 109/56
[2018-12-17] MEDS: budesonide 0.5mg/2ml UD nebule IH SCH (06:54)
[2018-12-17] MEDS: albuterol 2.5 MG/3 ML nebule NEB SCH ×3 (06:54→14:29)
[2018-12-17 07:00] VITALS: BP 116/42
[2018-12-17 07:00] LABS: MAGNESIUM 1.7 MG/DL (1.5-2.4); POTASSIUM 4.1 MMOL/L (3.5-5.1)
--- NOTE | 2018-12-17 07:59 | NUR ---
Problems reprioritized. Patient report given, questions answered & plan of care reviewed with Jada LAZAR.
[2018-12-17] MEDS: K and/or MAG REPLACEMENT MC SCH (08:00)
[2018-12-17] MEDS: pantoprazole 40 MG vial IV SCH (09:27)
[2018-12-17] MEDS: cyanocobalamin 500mcg tablet PO SCH (09:28)
[2018-12-17] MEDS: ketoconazole 2% cream 15gm TP SCH (09:28)
[2018-12-17] MEDS: calcium carbonate 500mg tablet PO SCH (09:28)
[2018-12-17] MEDS: nystatin 15 GM powder TP SCH ×2 (09:28→13:00)
[2018-12-17] MEDS: vitamin D (cholecalciferol) 1,000 unit tablet PO SCH (09:28)
[2018-12-17] MEDS: metoprolol tartrate 25mg tablet PO SCH (09:28)
[2018-12-17] MEDS: lactobacillus rhamnosus 10,000 MMU CELLS/CAPSULE PO SCH (09:28)
[2018-12-17] MEDS: [UNRECOGNIZED DRUG - REMARK] IV NR (09:50)
[2018-12-17] MEDS ORDERED: HYDROcodone/acetaminophen 10/325mg tab PO PRN (09:55)
[2018-12-17] MEDS ORDERED: HYDROcodone/acetaminophen 5mg/325mg tablet PO PRN (09:55)
[2018-12-17 10:29] LABS: BASOPHILS # (AUTO) 0.1 X10'3 (0-0.2); BASOPHILS % (AUTO) 0.8 % (0-1); EOSINOPHILS # (AUTO) 0.7 X10'3 (0-0.9); EOSINOPHILS % (AUTO) 5.7 % (0-6); HEMATOCRIT 28.2 % (35.0-45.0); HEMOGLOBIN 9.3 g/dl (12.0-16.0); LYMPHOCYTES # (AUTO) 2.1 X10'3 (1.1-4.8); LYMPHOCYTES % (AUTO) 18.5 % (21-51); MEAN CORPUSCULAR HEMOGLOBIN 32.2 PG (27.0-31.0); MEAN CORPUSCULAR VOLUME 97.7 FL (78-98); MEAN PLATELET VOLUME 9.5 FL (7.4-10.4); MONOCYTES # (AUTO) 1.1 X10'3 (0-0.9); MONOCYTES % (AUTO) 9.7 % (2-12); NEUTROPHILS # (AUTO) 7.5 X10'3 (1.8-7.7); NEUTROPHILS % (AUTO) 65.3 % (42-75); PLATELET COUNT 224 X10'3 (140-440); RED BLOOD COUNT 2.89 X10'6 (4.20-5.60); RED CELL DISTRIBUTION WIDTH 16.2 % (11.5-14.5); WHITE BLOOD COUNT 11.5 X10'3 (4.5-11.0)
[2018-12-17 10:40] LABS: ALANINE AMINOTRANSFERASE 19 U/L (12-78); ALBUMIN 2.2 G/DL (3.4-5.0); ALBUMIN/GLOBULIN RATIO 0.7 (1.1-1.5); ALKALINE PHOSPHATASE 58 IU/L (46-116); ANION GAP 10 (8-16); ASPARTATE AMINO TRANSFERASE 24 U/L (10-37); BILIRUBIN,TOTAL 0.2 MG/DL (0.1-1.0); BLOOD UREA NITROGEN 8 MG/DL (7-18); BUN/CREATININE RATIO 8.4 (6.6-38.0); CALCIUM 8.1 MG/DL (8.5-10.1); CHLORIDE 113 MMOL/L (99-107); CREATININE 0.95 MG/DL (0.40-0.90); GLUCOSE 141 MG/DL (70-104); SODIUM 144 MMOL/L (135-145); TOTAL CARBON DIOXIDE 20.7 MMOL/L (24-32); TOTAL PROTEIN 5.5 G/DL (6.4-8.2); eGFR 56 ML/MIN
[2018-12-17 11:00] VITALS: BP 119/56
--- NOTE | 2018-12-17 11:25 | NUR ---
Spoke with [facility] Physical therapist and informed him DR Ortiz wants the patient to be seen CHARU, he stated patient will be seen some time after lunch she is on the priority list
[2018-12-17] MEDS ORDERED: ESOM40CA PO (12:51)
[2018-12-17] MEDS ORDERED: KETO15CR2 TP (12:51)
[2018-12-17] MEDS ORDERED: METO25TA6 PO (12:51)
--- NOTE | 2018-12-17 15:18 | NUR ---
patient stable, Iv Dcd, prescriptions given to patient, patient understands Discharge
== END 2018-12-17 15:40 | disposition home or self-care (01) | DRG 377 ==
LOC: ER 11:05 → ED HOLD 14:08 → SUR 3N 16:15 → PCU 3S 12-14 14:14
PROVIDERS: ADMIT Family Medicine; ATTEND Family Medicine
PROC: 0DB68ZX Excision of Stomach, Via Natural or Artificial Opening Endoscopic, Diagnostic (ICD-10-PCS; principal; 2018-12-12)
PROC: 30233N1 Transfusion of Nonautologous Red Blood Cells into Peripheral Vein, Percutaneous Approach (ICD-10-PCS; 2018-12-12)
PROC: 30233N1 Transfusion of Nonautologous Red Blood Cells into Peripheral Vein, Percutaneous Approach (ICD-10-PCS; 2018-12-13)
PROC: 30233N1 Transfusion of Nonautologous Red Blood Cells into Peripheral Vein, Percutaneous Approach (ICD-10-PCS; 2018-12-14)
DX: K26.0 Acute duodenal ulcer with hemorrhage (principal); N17.0 Acute kidney failure with tubular necrosis; I47.2 Ventricular tachycardia; R71.0 Precipitous drop in hematocrit; K57.30 Diverticulosis of large intestine without perforation or abscess without bleeding; K29.70 Gastritis, unspecified, without bleeding; E11.9 Type 2 diabetes mellitus without complications; J44.9 Chronic obstructive pulmonary disease, unspecified; B35.6 Tinea cruris; I25.10 Atherosclerotic heart disease of native coronary artery without angina pectoris; K22.2 Esophageal obstruction; K44.9 Diaphragmatic hernia without obstruction or gangrene; Z77.22 Contact with and (suspected) exposure to environmental tobacco smoke (acute) (chronic); G89.29 Other chronic pain; I48.2 Chronic atrial fibrillation; Z60.2 Problems related to living alone; E86.0 Dehydration; Z88.0 Allergy status to penicillin; Z88.8 Allergy status to other drugs, medicaments and biological substances; Z91.018 Allergy to other foods; Z91.048 Other nonmedicinal substance allergy status; Z90.49 Acquired absence of other specified parts of digestive tract; I25.2 Old myocardial infarction; Z79.51 Long term (current) use of inhaled steroids; Z79.84 Long term (current) use of oral hypoglycemic drugs; Z79.899 Other long term (current) drug therapy; Z80.8 Family history of malignant neoplasm of other organs or systems; Z82.49 Family history of ischemic heart disease and other diseases of the circulatory system; Z85.3 Personal history of malignant neoplasm of breast; Z86.73 Personal history of transient ischemic attack (TIA), and cerebral infarction without residual deficits; Z87.11 Personal history of peptic ulcer disease; Z90.710 Acquired absence of both cervix and uterus; Z90.722 Acquired absence of ovaries, bilateral; Z79.82 Long term (current) use of aspirin; Z79.01 Long term (current) use of anticoagulants
CPT/HCPCS: 36415; 43239; 71045; 74176; 80048; 80053; 80061; 82948; 83036; 83605; 83735; 85025; 85027; 85610; 85730; 86885; 86900; 86901; 86920; 87040; 87070; 88305; 88342; 93005; 93306; 94640; 94667; 94668; 94760; 96374; 96375; 97116; 97162; 97530; 99152; 99285; A4620; C9113; G0378; J0696; J1815; J1956; J2250; J2270; J3010; J3475; J3480; J3490; J7030; J7070; J7626; P9016; Q9963

== ENCOUNTER 2019-02-28 02:25 | Emergency (ER) | payer MEDICARE, BC ==
[~2019-02-28] VITALS: Ht 165.1 cm; Wt 110.8 kg
[~2019-02-28 02:25] MED LIST changes: -ALBU6.7H INH; -ASPI-611 PO; -AZIT250T2 PO; +BIOT800T PO; -CELE-193 PO; +CHOL10002 PO; +CYAN-19 PO; -DOXY-200 PO; -FEBU40TA PO; +FLUT16SP2 BOTHNARES; -FURO-150 PO; -HYDR-3686 PO; -IPRA3AMP31 IH; +KETO15CR2 TP; +METO25TA6 PO; -NEBI2.5T3 PO; +NITR0.4T48 SL; -POTA20TA84 PO; -PRED20TA PO; +ROPI1TAB4 PO; -ROPI2TAB29 PO; +TURM538C PO
[2019-02-28 02:33] VITALS: BP 155/82
[2019-02-28] MEDS ORDERED: diltiazem 5mg/ml 5ml inj. IV ONE (02:40)
[2019-02-28] MEDS ORDERED: PRED20TA PO (02:42)
[2019-02-28] MEDS ORDERED: dexamethasone 4mg tablet PO ONE (02:45)
== END 2019-02-28 02:59 | disposition home or self-care (01) ==
LOC: ER 02:26
DX: L50.8 Other urticaria (principal); L98.9 Disorder of the skin and subcutaneous tissue, unspecified; I48.91 Unspecified atrial fibrillation; I25.10 Atherosclerotic heart disease of native coronary artery without angina pectoris; I25.2 Old myocardial infarction; J44.9 Chronic obstructive pulmonary disease, unspecified; E11.9 Type 2 diabetes mellitus without complications; G89.29 Other chronic pain; Z85.3 Personal history of malignant neoplasm of breast; Z90.49 Acquired absence of other specified parts of digestive tract; Z88.0 Allergy status to penicillin; Z88.8 Allergy status to other drugs, medicaments and biological substances; Z79.899 Other long term (current) drug therapy
CPT/HCPCS: 99283; J8540

== ENCOUNTER 2022-12-28 14:43 | Inpatient (IN) | payer MEDICARE, BC ==
[~2022-12-28] VITALS: Ht 154.9 cm; Wt 109.1 kg
[~2022-12-28 14:43] MED LIST changes: +APIX5TAB3 PO; +ATR0.5NEB IH; +CARCD120C PO; -CYAN-19 PO; +CYAN-51 PO; +DILT180C66 PO; -ESOM40CA PO; +LACT1CAP26 PO; +LIDO30CR TP; +METO-395 PO; -METO25TA6 PO; -ROPI1TAB4 PO; +ROPI1TAB6 PO
[2022-12-28 15:30] LABS: BASOPHILS # (AUTO) 0.1 X10'3 (0-0.2); BASOPHILS % (AUTO) 1.1 % (0-1); EOSINOPHILS # (AUTO) 0.3 X10'3 (0-0.9); LYMPHOCYTES # (AUTO) 1.9 X10'3 (1.1-4.8); LYMPHOCYTES % (AUTO) 17.4 % (21-51); MEAN CORPUSCULAR HEMOGLOBIN 23.6 PG (27.0-31.0); MEAN CORPUSCULAR HGB CONC 30.2 g/dL (33.0-36.5); MEAN CORPUSCULAR VOLUME 78.3 FL (78-98); MEAN PLATELET VOLUME 8.4 FL (7.4-10.4); MONOCYTES # (AUTO) 1.2 X10'3 (0-0.9); NEUTROPHILS # (AUTO) 7.3 X10'3 (1.8-7.7); NEUTROPHILS % (AUTO) 67.5 % (42-75); PLATELET COUNT 314 X10'3 (140-440); RED BLOOD COUNT 2.28 X10'6 (4.20-5.60); RED CELL DISTRIBUTION WIDTH 23.1 % (11.5-14.5); WHITE BLOOD COUNT 10.8 X10'3 (4.5-11.0)
[2022-12-28 15:39] LABS: APTT 25 SECONDS (22-32)
[2022-12-28 15:40] LABS: ALANINE AMINOTRANSFERASE 11 U/L (12-78); ALBUMIN 2.9 G/DL (3.4-5.0); ALBUMIN/GLOBULIN RATIO 0.7 (1.1-1.5); ALKALINE PHOSPHATASE 74 IU/L (46-116); ANION GAP 10 (8-16); ASPARTATE AMINO TRANSFERASE 8 U/L (10-37); BILIRUBIN,TOTAL 0.2 MG/DL (0.1-1.0); BLOOD UREA NITROGEN 49 MG/DL (7-18); BUN/CREATININE RATIO 28.5 (10.0-20.0); CALCIUM 8.9 MG/DL (8.5-10.1); CHLORIDE 104 MMOL/L (99-107); CREATININE 1.72 MG/DL (0.40-0.90); GLUCOSE 124 MG/DL (70-104); POTASSIUM 3.6 MMOL/L (3.5-5.1); SODIUM 141 MMOL/L (135-145); TOTAL CARBON DIOXIDE 27.5 MMOL/L (24-32); TOTAL PROTEIN 6.8 G/DL (6.4-8.2); eGFR 28 ML/MIN
[2022-12-28 15:41] LABS: HEMATOCRIT 17.9 % (35.0-45.0); HEMOGLOBIN 5.4 g/dl (12.0-16.0)
[2022-12-28 16:08] LABS: PLATELET ESTIMATE NORMAL
[2022-12-28 16:09] LABS: ANISOCYTOSIS 3+; HYPOCHROMASIA 3+; MICROCYTOSIS 1+; POIKILOCYTOSIS 2+
[2022-12-28 16:13] LABS: STOMATOCYTES 1+
[2022-12-28 16:58] VITALS: BP 128/61
[2022-12-28] MEDS ORDERED: pantoprazole 40mg IV 80 MG in normal saline 100ml IV soln 100 ML IV ONE (17:10)
[2022-12-28] MEDS ORDERED: bisacodyl 10mg suppository rectal RC PRN (17:15)
[2022-12-28] MEDS ORDERED: magnesium hydroxide 30ml (MOM) UD suspension PO PRN (17:15)
[2022-12-28] MEDS ORDERED: mag hydrox/Alum hydrox/simeth 30ml oral suspension PO PRN (17:15)
[2022-12-28] MEDS ORDERED: HYDROcodone/acetaminophen 5mg/325mg tablet PO PRN (17:15)
[2022-12-28] MEDS ORDERED: diphenhydrAMINE 25mg capsule PO PRN (17:15)
[2022-12-28] MEDS ORDERED: potassium Cl 20 mEq SR tablet PO PRN (17:15)
[2022-12-28] MEDS ORDERED: ondansetron/PF 4mg/2ml inj IV PRN (17:15)
[2022-12-28] MEDS: normal saline 1000ml 1,000 ML IV SCH ×2 (17:15→22:10)
[2022-12-28] MEDS ORDERED: PERFLUTREN PROTEIN-A MICROSPHR (Optison) 0.22 MG/ML 3ML VIAL IV ONE (17:15)
[2022-12-28] MEDS ORDERED: potassium Cl 40MEQ/1/2NS 520ml 520 ML IV PRN (17:15)
[2022-12-28] MEDS ORDERED: morphine 2 MG/ML inj. syringe IV PRN ×2 (17:15)
[2022-12-28] MEDS ORDERED: magnesium 4gm in 100ml NS 100 ML IV PRN (17:15)
[2022-12-28] MEDS ORDERED: acetaminophen 325mg tablet PO PRN ×2 (17:15)
[2022-12-28 17:20] VITALS: BP 108/44
[2022-12-28 17:46] LABS: HEMOGLOBIN A1C 7.3 % (4.5-6.2)
[2022-12-28] MEDS ORDERED: FURO20TA4 PO (19:15)
[2022-12-28] MEDS ORDERED: FINE10TA PO (19:15)
[2022-12-28] MEDS ORDERED: AMA1T PO (19:15)
[2022-12-28] MEDS ORDERED: ESOM40CA54 PO (19:15)
[2022-12-28] MEDS ORDERED: POTA-207 PO (19:15)
[2022-12-28] MEDS ORDERED: VALS1TAB77 PO (19:15)
[2022-12-28] MEDS ORDERED: EMPA10TA PO (19:15)
[2022-12-28] MEDS ORDERED: BUDE10.26 PO (19:15)
[2022-12-28] MEDS ORDERED: NALO4SPR3 NS (19:15)
[2022-12-28] MEDS ORDERED: GABA300C PO (19:15)
[2022-12-28 20:32] VITALS: BP 131/79
[2022-12-28 20:34] LABS: MEAN CORPUSCULAR HEMOGLOBIN 24.1 PG (27.0-31.0); MEAN CORPUSCULAR HGB CONC 30.9 g/dL (33.0-36.5); MEAN PLATELET VOLUME 8.1 FL (7.4-10.4); PLATELET COUNT 294 X10'3 (140-440); RED CELL DISTRIBUTION WIDTH 21.3 % (11.5-14.5)
[2022-12-28 20:42] LABS: HEMATOCRIT 19.5 % (35.0-45.0)
[2022-12-28 20:45] VITALS: BP 122/52
--- NOTE | 2022-12-28 20:47 | NUR ---
CRITICAL H&H 6.0/ 19.5 IMPROVED FROM LAST DRAW. BLOOD TRANSFUSION RUNNING. RN AND CRN NOTIFIED. HOSPITALIST NOTIFIED DR. BRUNER W/ NO NEW ORDERS.
[2022-12-28 20:59] VITALS: BP 119/51
[2022-12-28] MEDS ORDERED: pantoprazole 40MG/NS 100ML BAG 100 ML IV SCH (21:00)
[2022-12-28] MEDS: docusate sod 100mg capsule PO SCH (21:32)
[2022-12-28] MEDS: K and/or MAG REPLACEMENT MC SCH (21:33)
[2022-12-28] MEDS: HYDROcodone/acetaminophen 10/325mg tab PO PRN (22:20)
[2022-12-28 22:22] VITALS: BP 137/53
[2022-12-28] MEDS ORDERED: ROPINIRole 1mg tablet PO SCH (22:49)
[2022-12-28] MEDS ORDERED: nitroGLYCERIN 0.4mg SUBLingual tab SL PRN (23:05)
[2022-12-28] MEDS ORDERED: fluticasone nasal spray 16GM bottle NS PRN (23:20)
--- NOTE | 2022-12-28 23:41 | NUR ---
Pt states medication helped pain, and is tolerable at this time 04/04
[2022-12-28] MEDS: ROPINIRole 1mg tablet PO SCH (23:54)
[2022-12-29] VITALS (14 sets, daily range): BP systolic 101–135; BP diastolic 39–86
[2022-12-29] MEDS: pantoprazole 40MG/NS 100ML BAG 100 ML IV SCH ×6 (00:10→21:42)
[2022-12-29 00:39] LABS: CLARITY,URINE CLEAR (Clear); COLOR,URINE YELLOW (Yellow); GLUCOSE, URINE NEGATIVE (Neg); KETONES,URINE NEGATIVE (Neg); LEUKOCYTE ESTERASE ,URINE NEGATIVE (Neg); NITRITES, URINE NEGATIVE (Neg); OCCULT BLOOD,URINE NEGATIVE (Neg); PH,URINE 5.5 (4.8-8.0); PROTEIN,URINE NEGATIVE (Neg); UROBILINOGEN,URINE 0.2 E.U/dL (0.2-1.0)
[2022-12-29 00:45] LABS: UA COLLECTION TYPE CLN CATCH MIDSTREAM
[2022-12-29 02:24] LABS: BASOPHILS # (AUTO) 0.1 X10'3 (0-0.2); BASOPHILS % (AUTO) 1.1 % (0-1); EOSINOPHILS # (AUTO) 0.3 X10'3 (0-0.9); EOSINOPHILS % (AUTO) 2.7 % (0-6); HEMATOCRIT 22.2 % (35.0-45.0); LYMPHOCYTES # (AUTO) 2.3 X10'3 (1.1-4.8); LYMPHOCYTES % (AUTO) 18.9 % (21-51); MEAN CORPUSCULAR HGB CONC 31.5 g/dL (33.0-36.5); MEAN CORPUSCULAR VOLUME 79.2 FL (78-98); MEAN PLATELET VOLUME 8.3 FL (7.4-10.4); MONOCYTES # (AUTO) 1.3 X10'3 (0-0.9); MONOCYTES % (AUTO) 10.8 % (2-12); NEUTROPHILS # (AUTO) 7.9 X10'3 (1.8-7.7); NEUTROPHILS % (AUTO) 66.5 % (42-75); PLATELET COUNT 267 X10'3 (140-440); RED CELL DISTRIBUTION WIDTH 20.4 % (11.5-14.5); WHITE BLOOD COUNT 11.9 X10'3 (4.5-11.0)
[2022-12-29 02:35] LABS: ALANINE AMINOTRANSFERASE 13 U/L (12-78); ALBUMIN 2.7 G/DL (3.4-5.0); ALBUMIN/GLOBULIN RATIO 0.8 (1.1-1.5); ALKALINE PHOSPHATASE 71 IU/L (46-116); ANION GAP 9 (8-16); ASPARTATE AMINO TRANSFERASE 16 U/L (10-37); BILIRUBIN,TOTAL 0.8 MG/DL (0.1-1.0); BLOOD UREA NITROGEN 46 MG/DL (7-18); BUN/CREATININE RATIO 27.4 (10.0-20.0); CALCIUM 8.6 MG/DL (8.5-10.1); CHLORIDE 105 MMOL/L (99-107); CHOL/HDL RATIO 2.2 (0.00-4.99); CHOLESTEROL 110 MG/DL (0-200); CREATININE 1.68 MG/DL (0.40-0.90); GLUCOSE 102 MG/DL (70-104); HDL CHOLESTEROL 51 MG/DL (35-60); LDL CHOLESTEROL 41 MG/DL (50-100); MAGNESIUM 1.5 MG/DL (1.5-2.4); POTASSIUM 3.6 MMOL/L (3.5-5.1); SODIUM 141 MMOL/L (135-145); TOTAL CARBON DIOXIDE 26.9 MMOL/L (24-32); TOTAL PROTEIN 6.2 G/DL (6.4-8.2); TRIGLYCERIDES 139 MG/DL (20-135); eGFR 29 ML/MIN
[2022-12-29] MEDS: albuterol 2.5 MG/3 ML nebule NEB SCH ×4 (02:45→20:48)
--- NOTE | 2022-12-29 06:21 | NUR ---
Problems reprioritized. Patient report given, questions answered & plan of care reviewed with La Nena LAZAR.
--- NOTE | 2022-12-29 06:35 | NUR ---
Patient in room [facility]TH[facility] 4010. I have received report from NAGI GONSALES, and had the opportunity to ask questions and assume patient care.
[2022-12-29] MEDS ORDERED: FINERENONE PO SCH (08:00)
[2022-12-29] MEDS: K and/or MAG REPLACEMENT MC SCH ×2 (08:00→19:07)
[2022-12-29] MEDS ORDERED: MESSAGE TO PHARMACY PO ONE (08:40)
[2022-12-29] MEDS ORDERED: DEXTROSE 15 GM of carb/4 tabs (each vial/BOTTLE has 4 tablets) PO PRN ×2 (08:40)
[2022-12-29] MEDS ORDERED: dextrose 50%-water 50ml dispensing syringe IV PRN ×2 (08:40)
[2022-12-29] MEDS ORDERED: glucagon, human recombinant 1mg kit SUBCUT PRN (08:40)
[2022-12-29] MEDS ORDERED: insulin Lispro (HumaLOG) vial - multi-dose SQ SCH (08:40)
[2022-12-29] MEDS: furosemide 20MG tablet PO SCH (08:40)
[2022-12-29] MEDS: HYDROcodone/acetaminophen 10/325mg tab PO PRN ×2 (08:41→20:33)
[2022-12-29] MEDS: docusate sod 100mg capsule PO SCH ×2 (08:41→19:34)
[2022-12-29 08:49] LABS: HEMATOCRIT 26.1 % (35.0-45.0); HEMOGLOBIN 8.5 g/dl (12.0-16.0); MEAN CORPUSCULAR HEMOGLOBIN 26.2 PG (27.0-31.0); MEAN CORPUSCULAR HGB CONC 32.6 g/dL (33.0-36.5); MEAN CORPUSCULAR VOLUME 80.4 FL (78-98); MEAN PLATELET VOLUME 8.6 FL (7.4-10.4); PLATELET COUNT 265 X10'3 (140-440); RED BLOOD COUNT 3.25 X10'6 (4.20-5.60); RED CELL DISTRIBUTION WIDTH 19.1 % (11.5-14.5); WHITE BLOOD COUNT 10.1 X10'3 (4.5-11.0)
[2022-12-29] MEDS: losartan 50mg tablet PO SCH (08:49)
[2022-12-29] MEDS: HYDROchlorothiazide 25mg tablet PO SCH (08:49)
[2022-12-29] MEDS: budesonide 0.5mg/2ml UD nebule IH SCH ×2 (08:57→20:48)
[2022-12-29] MEDS ORDERED: fentaNYL/PF 50MCG/1 ML 2ML syringe ONE (10:58)
[2022-12-29] MEDS ORDERED: MIDAZolam 1 MG/ML 5ML VIAL ONE (10:58)
[2022-12-29] MEDS ORDERED: LIDOcaine Viscous 15ml cup ONE (10:59)
[2022-12-29] MEDS ORDERED: PEG 3350/Na sulf,bicarb,Cl/KCl oral sol 4 liter bottle PO ONE (11:20)
[2022-12-29 14:39] LABS: HEMATOCRIT 26.9 % (35.0-45.0); HEMOGLOBIN 8.5 g/dl (12.0-16.0); MEAN CORPUSCULAR HGB CONC 31.8 g/dL (33.0-36.5); MEAN CORPUSCULAR VOLUME 81.8 FL (78-98); MEAN PLATELET VOLUME 8.4 FL (7.4-10.4); PLATELET COUNT 259 X10'3 (140-440); RED BLOOD COUNT 3.28 X10'6 (4.20-5.60); RED CELL DISTRIBUTION WIDTH 19.2 % (11.5-14.5); WHITE BLOOD COUNT 9.8 X10'3 (4.5-11.0)
--- NOTE | 2022-12-29 17:51 | NUR ---
Student documentation: I have reviewed and agree with all interventions, assessments performed and documented by NAGI DAILY.Student Medication Administration: For this medication-pass time frame, all medication were reviewed, dispensed, administered and documented per hospital policy by NAGI DAILY.
--- NOTE | 2022-12-29 17:57 | NUR ---
DM Consult: Pt hx T2DM A1C 7.3% per EMR; appropriate given advanced age. Addendum: 12/29/22 at [address] Amended: Links added.
--- NOTE | 2022-12-29 18:08 | NUR ---
Problems reprioritized. Patient report given, questions answered & plan of care reviewed with NAGI KNOWLES.
[2022-12-29] MEDS: insulin glargine (Lantus) pen - multi-dose SQ SCH (20:08)
[2022-12-29] MEDS: ROPINIRole 1mg tablet PO SCH ×2 (20:13→20:30)
[2022-12-29] MEDS: ROSUVASTATIN CALCIUM 5 MG TABLET PO SCH (20:51)
[2022-12-29] MEDS: normal saline 1000ml 1,000 ML IV SCH (22:00)
--- NOTE | 2022-12-29 22:45 | NUR ---
Student documentation: I have reviewed interventions, assessments performed and documented by Noemi [facility].
[2022-12-30] VITALS (8 sets, daily range): BP systolic 98–144; BP diastolic 51–97
[2022-12-30] MEDS: albuterol 2.5 MG/3 ML nebule NEB SCH ×4 (02:47→20:56)
[2022-12-30] MEDS: pantoprazole 40MG/NS 100ML BAG 100 ML IV SCH ×3 (04:00→09:35)
[2022-12-30 06:45] LABS: ALANINE AMINOTRANSFERASE 15 U/L (12-78); ALBUMIN 2.7 G/DL (3.4-5.0); ALBUMIN/GLOBULIN RATIO 0.8 (1.1-1.5); ALKALINE PHOSPHATASE 72 IU/L (46-116); ANION GAP 12 (8-16); ASPARTATE AMINO TRANSFERASE 16 U/L (10-37); BILIRUBIN,TOTAL 0.4 MG/DL (0.1-1.0); BLOOD UREA NITROGEN 31 MG/DL (7-18); CALCIUM 7.7 MG/DL (8.5-10.1); CHLORIDE 107 MMOL/L (99-107); CREATININE 1.55 MG/DL (0.40-0.90); GLUCOSE 145 MG/DL (70-104); MAGNESIUM 1.3 MG/DL (1.5-2.4); PHOSPHORUS 4.2 MG/DL (2.3-4.5); POTASSIUM 3.1 MMOL/L (3.5-5.1); SODIUM 143 MMOL/L (135-145); TOTAL CARBON DIOXIDE 24.4 MMOL/L (24-32); TOTAL PROTEIN 6.1 G/DL (6.4-8.2); eGFR 32 ML/MIN
[2022-12-30 06:58] LABS: BASOPHILS # (AUTO) 0.1 X10'3 (0-0.2); BASOPHILS % (AUTO) 1.1 % (0-1); EOSINOPHILS # (AUTO) 0.2 X10'3 (0-0.9); HEMATOCRIT 23.6 % (35.0-45.0); HEMOGLOBIN 7.7 g/dl (12.0-16.0); LYMPHOCYTES # (AUTO) 1.5 X10'3 (1.1-4.8); LYMPHOCYTES % (AUTO) 14.4 % (21-51); MEAN CORPUSCULAR HEMOGLOBIN 26.3 PG (27.0-31.0); MEAN CORPUSCULAR HGB CONC 32.5 g/dL (33.0-36.5); MEAN CORPUSCULAR VOLUME 80.8 FL (78-98); MEAN PLATELET VOLUME 8.3 FL (7.4-10.4); MONOCYTES # (AUTO) 1.1 X10'3 (0-0.9); MONOCYTES % (AUTO) 10.3 % (2-12); NEUTROPHILS # (AUTO) 7.5 X10'3 (1.8-7.7); NEUTROPHILS % (AUTO) 72.2 % (42-75); PLATELET COUNT 243 X10'3 (140-440); RED BLOOD COUNT 2.92 X10'6 (4.20-5.60); RED CELL DISTRIBUTION WIDTH 19.4 % (11.5-14.5); WHITE BLOOD COUNT 10.4 X10'3 (4.5-11.0)
[2022-12-30] MEDS: magnesium Cl slow-release 64mg tablet PO PRN ×2 (07:27→17:21)
[2022-12-30] MEDS: furosemide 20MG tablet PO SCH (07:27)
[2022-12-30] MEDS: HYDROchlorothiazide 25mg tablet PO SCH (07:27)
[2022-12-30] MEDS: docusate sod 100mg capsule PO SCH ×2 (07:27→19:15)
[2022-12-30] MEDS: potassium Cl 20 mEq SR tablet PO PRN ×2 (07:27→17:21)
[2022-12-30] MEDS: losartan 50mg tablet PO SCH (07:28)
[2022-12-30] MEDS: HYDROcodone/acetaminophen 10/325mg tab PO PRN ×2 (07:33→17:25)
[2022-12-30] MEDS: K and/or MAG REPLACEMENT MC SCH ×2 (07:36→18:50)
[2022-12-30 08:11] LABS: ANISOCYTOSIS 2+; PLATELET ESTIMATE NORMAL; TOTAL CELLS COUNTED 100
[2022-12-30 08:12] LABS: HYPOCHROMASIA 1+; POLYCHROMASIA FEW
[2022-12-30 08:14] LABS: SCHISTOCYTES FEW
[2022-12-30] MEDS: budesonide 0.5mg/2ml UD nebule IH SCH ×2 (08:55→20:56)
[2022-12-30] MEDS: normal saline 1000ml 1,000 ML IV SCH ×2 (09:15→22:35)
[2022-12-30] MEDS ORDERED: fentaNYL/PF 50MCG/1 ML 2ML syringe ONE (13:25)
[2022-12-30] MEDS ORDERED: MIDAZolam 1 MG/ML 5ML VIAL ONE (13:26)
--- NOTE | 2022-12-30 16:48 | NUR ---
Message: Ania [id number] [phone] [id number] Sheron Sandra. Pt's IV infiltrated, pt would prefer to not place another IV. Is it ok to leave out? pt on sodium chloride 75ml/hr and protonix IV. Thanks
--- NOTE | 2022-12-30 17:12 | NUR ---
After review I agree with the Physical Assessment charted by NAGI Jorge. Addendum: 12/30/22 at 1713 by Rut Marquez RN Amended: Links added.
[2022-12-30] MEDS: ROPINIRole 1mg tablet PO SCH ×2 (18:56→19:20)
[2022-12-30] MEDS: pantoprazole 40mg Tablet.DR PO SCH (19:19)
[2022-12-30] MEDS: ROSUVASTATIN CALCIUM 5 MG TABLET PO SCH (19:20)
[2022-12-30] MEDS ORDERED: pantoprazole 40MG/NS 100ML BAG 100 ML IV SCH (20:00)
[2022-12-30] MEDS: insulin glargine (Lantus) pen - multi-dose SQ SCH (20:46)
[2022-12-31] MEDS: albuterol 2.5 MG/3 ML nebule NEB SCH ×2 (02:36→08:55)
[2022-12-31] MEDS: potassium Cl 20 mEq SR tablet PO PRN (05:20)
--- NOTE | 2022-12-31 06:43 | NUR ---
Patient in room ORTHO 4010. I have received report from Tushar LAZAR and had the opportunity to ask questions and assume patient care.
[2022-12-31 07:00] VITALS: BP 128/69
[2022-12-31 07:23] LABS: BASOPHILS # (AUTO) 0.1 X10'3 (0-0.2); BASOPHILS % (AUTO) 1.1 % (0-1); EOSINOPHILS # (AUTO) 0.6 X10'3 (0-0.9); EOSINOPHILS % (AUTO) 5.8 % (0-6); HEMOGLOBIN 8.4 g/dl (12.0-16.0); LYMPHOCYTES # (AUTO) 1.6 X10'3 (1.1-4.8); LYMPHOCYTES % (AUTO) 16.5 % (21-51); MEAN CORPUSCULAR HEMOGLOBIN 26.4 PG (27.0-31.0); MEAN CORPUSCULAR HGB CONC 32.2 g/dL (33.0-36.5); MEAN CORPUSCULAR VOLUME 81.9 FL (78-98); MEAN PLATELET VOLUME 8.5 FL (7.4-10.4); MONOCYTES # (AUTO) 0.8 X10'3 (0-0.9); MONOCYTES % (AUTO) 8.3 % (2-12); NEUTROPHILS # (AUTO) 6.6 X10'3 (1.8-7.7); NEUTROPHILS % (AUTO) 68.3 % (42-75); PLATELET COUNT 288 X10'3 (140-440); RED BLOOD COUNT 3.18 X10'6 (4.20-5.60); RED CELL DISTRIBUTION WIDTH 20.2 % (11.5-14.5); WHITE BLOOD COUNT 9.7 X10'3 (4.5-11.0)
[2022-12-31 07:29] LABS: ALANINE AMINOTRANSFERASE 17 U/L (12-78); ALBUMIN 2.9 G/DL (3.4-5.0); ALBUMIN/GLOBULIN RATIO 0.7 (1.1-1.5); ALKALINE PHOSPHATASE 78 IU/L (46-116); ANION GAP 11 (8-16); ASPARTATE AMINO TRANSFERASE 20 U/L (10-37); BILIRUBIN,TOTAL 0.3 MG/DL (0.1-1.0); BLOOD UREA NITROGEN 26 MG/DL (7-18); BUN/CREATININE RATIO 16.5 (10.0-20.0); CALCIUM 7.7 MG/DL (8.5-10.1); CHLORIDE 108 MMOL/L (99-107); CREATININE 1.58 MG/DL (0.40-0.90); GLUCOSE 153 MG/DL (70-104); MAGNESIUM 1.5 MG/DL (1.5-2.4); POTASSIUM 3.6 MMOL/L (3.5-5.1); SODIUM 145 MMOL/L (135-145); TOTAL CARBON DIOXIDE 26.4 MMOL/L (24-32); TOTAL PROTEIN 6.8 G/DL (6.4-8.2); eGFR 31 ML/MIN
[2022-12-31] MEDS: K and/or MAG REPLACEMENT MC SCH (08:00)
[2022-12-31] MEDS: pantoprazole 40mg Tablet.DR PO SCH (08:25)
[2022-12-31] MEDS: HYDROchlorothiazide 25mg tablet PO SCH (08:25)
[2022-12-31] MEDS: losartan 50mg tablet PO SCH (08:26)
[2022-12-31] MEDS: docusate sod 100mg capsule PO SCH (08:26)
[2022-12-31] MEDS: furosemide 20MG tablet PO SCH (08:26)
[2022-12-31] MEDS: HYDROcodone/acetaminophen 10/325mg tab PO PRN (08:27)
[2022-12-31] MEDS: budesonide 0.5mg/2ml UD nebule IH SCH (08:55)
--- NOTE | 2022-12-31 10:00 | NUR ---
After review I agree with the Physical Assessment charted by Ania LAZAR witht he following notes: Patient is on Room Air not NC, Bowel is normal, and Nutrition is Adequate. Addendum: 12/31/22 at 1001 by Rut Marquez RN Amended: Links added.
[2022-12-31 11:17] VITALS: BP 103/57
[2022-12-31 11:37] LABS: ANISOCYTOSIS 3+; PLATELET ESTIMATE NORMAL; POLYCHROMASIA 2+
[2022-12-31 11:38] LABS: HYPOCHROMASIA 1+; SCHISTOCYTES FEW
--- NOTE | 2022-12-31 12:02 | NUR ---
Pt discharged home at 1150. Grandson to bring pt home. Pt left with all belongings. Discharge paperwork gone over with pt, pt verbalized no questions. Pt left in stable condition.
== END 2022-12-31 11:50 | disposition home or self-care (01) | DRG 377 ==
LOC: ER 14:44 → ED HOLD 17:18 → ORTHO 4S 12-29 00:30
PROVIDERS: ADMIT Family Medicine; ATTEND Family Medicine
PROC: 30233N1 Transfusion of Nonautologous Red Blood Cells into Peripheral Vein, Percutaneous Approach (ICD-10-PCS; 2022-12-28)
PROC: 0DB78ZX Excision of Stomach, Pylorus, Via Natural or Artificial Opening Endoscopic, Diagnostic (ICD-10-PCS; principal; 2022-12-29)
PROC: 0DJD8ZZ Inspection of Lower Intestinal Tract, Via Natural or Artificial Opening Endoscopic (ICD-10-PCS; 2022-12-30)
DX: K29.71 Gastritis, unspecified, with bleeding (principal); N17.0 Acute kidney failure with tubular necrosis; K21.9 Gastro-esophageal reflux disease without esophagitis; I12.9 Hypertensive chronic kidney disease with stage 1 through stage 4 chronic kidney disease, or unspecified chronic kidney disease; E11.22 Type 2 diabetes mellitus with diabetic chronic kidney disease; D17.5 Benign lipomatous neoplasm of intra-abdominal organs; K57.31 Diverticulosis of large intestine without perforation or abscess with bleeding; J44.9 Chronic obstructive pulmonary disease, unspecified; I48.91 Unspecified atrial fibrillation; G89.29 Other chronic pain; N18.30 Chronic kidney disease, stage 3 unspecified; D50.9 Iron deficiency anemia, unspecified; E78.5 Hyperlipidemia, unspecified; I25.10 Atherosclerotic heart disease of native coronary artery without angina pectoris; Z79.01 Long term (current) use of anticoagulants; I25.2 Old myocardial infarction; Z80.8 Family history of malignant neoplasm of other organs or systems; Z82.49 Family history of ischemic heart disease and other diseases of the circulatory system; Z85.3 Personal history of malignant neoplasm of breast; Z87.11 Personal history of peptic ulcer disease; Z88.0 Allergy status to penicillin; Z91.018 Allergy to other foods; Z91.048 Other nonmedicinal substance allergy status; Z90.49 Acquired absence of other specified parts of digestive tract; Z79.899 Other long term (current) drug therapy
CPT/HCPCS: 36415; 36430; 43239; 45378; 80053; 80061; 81003; 82948; 83036; 83735; 84100; 85007; 85008; 85025; 85027; 85610; 85730; 86885; 86900; 86901; 86920; 87081; 88305; 93306; 94640; 94760; 97116; 97161; 97530; 99152; 99285; A4615; A4620; C9113; G0378; J1815; J2250; J2405; J3010; J3490; J7030; J7040; J7042; P9016